=== PATIENT | female | born 1980 | race Caucasian/White ===

== ENCOUNTER 2022-01-04 02:39 | Observation (INO) | payer OTHER ==
[2022-01-04] MEDS ORDERED: ACETAMINOPHEN 1000 MG/100 ML BAG IVPB ONE (03:11)
[2022-01-04] MEDS ORDERED: SODIUM CHLORIDE 0.9% 500 ML INFUS.BAG IV ONE (03:11)
[2022-01-04] MEDS ORDERED: morphine CARPU-JECT 4 MG/1 ML DISP.SYRIN IVPUSH ONE (03:13)
[2022-01-04] MEDS ORDERED: ONDANSETRON 4 MG/2 ML VIAL IVPUSH ONE (03:13)
[2022-01-04] MEDS ORDERED: SODIUM CHLORIDE 1,000 ML IV STA (03:13)
[2022-01-04] MEDS ORDERED: morphine SULFATE 4 MG/ML VIAL ONE (03:22)
[2022-01-04] MEDS ORDERED: ACETAMINOPHEN INJECTION 100 ML IVPB ONE (03:22)
[2022-01-04] MEDS ORDERED: ONDANSETRON 4 MG/2 ML VIAL ONE ×2 (03:22→13:00)
[2022-01-04 04:19] LABS: EPI CELLS 25 /uL (0-25.1); HYALINE CASTS 1 /uL (0-3.1); URINE APPEARANCE CLEAR; URINE BACTERIA 44 /uL (0-1359); URINE BILIRUBIN NEGATIVE (NEGATIVE); URINE COLOR YELLOW; URINE GLUCOSE (UA) NEGATIVE (NEGATIVE); URINE KETONE NEGATIVE (NEGATIVE); URINE LEUK ESTERASE NEGATIVE (NEGATIVE); URINE NITRITE NEGATIVE (NEGATIVE); URINE PROTEIN TRACE (NEGATIVE); URINE RBC 1754 /uL (0-23.9); URINE UROBILINOGEN 0.2 mg/dL (0.2-1.0); URINE WBC 17 /uL (0-25.8)
[2022-01-04] MEDS ORDERED: KETOROLAC TROMETHAMINE 30 MG/1 ML VIAL IVPUSH ONE (04:26)
[2022-01-04 04:33] LABS: CALCIUM 8.9 mg/dL (8.5-10.1)
[2022-01-04 04:34] LABS: ALBUMIN 3.7 g/dl (3.4-5.0); BLOOD UREA NITROGEN 11.3 mg/dL (7-18)
[2022-01-04 04:37] LABS: CREATININE 0.8 mg/dL (0.55-1.3)
[2022-01-04 04:38] LABS: BILIRUBIN,TOTAL 0.5 mg/dL (0.2-1)
[2022-01-04 04:39] LABS: TOT PROT 7.4 g/dl (6.4-8.2)
[2022-01-04 04:52] LABS: ACTIVATED PTT 29.4 SECONDS (25.2-36.5); INR 0.98 (0.83-1.09); PROTHROMBIN TIME (PATIENT) 11.3 SEC (9.7-13.0)
[2022-01-04] MEDS ORDERED: KETOROLAC TROMETHAMINE 30 MG/1 ML VIAL ONE (05:09)
[2022-01-04 05:15] LABS: BASO % 0.5 % (0-2.0); EOS % 0.6 % (0-4.5); HEMATOCRIT 37.6 % (32.4-45.2); HEMOGLOBIN 12.5 GM/dL (10.7-15.3); LYMPH % 15.8 % (8-40); MCH 30.1 pg (25.7-33.7); MCHC 33.3 g/dl (32.0-36.0); MEAN CELL VOLUME 90.5 fl (80-96); MEAN PLT VOLUME 7.5 fl (7.5-11.1); MONO % 3.7 % (3.8-10.2); NEUT % 79.4 % (42.8-82.8); PLATELET COUNT 511 10^3/uL (134-434); RBC 4.16 M/mm3 (3.60-5.2); WHITE BLOOD COUNT 13.1 K/mm3 (4.0-10.0)
[2022-01-04] MEDS ORDERED: morphine CARPU-JECT 4 MG/1 ML DISP.SYRIN IVPUSH PRN (11:57)
[2022-01-04] MEDS ORDERED: ACETAMINOPHEN 1000 MG/100 ML BAG IVPB PRN ×2 (11:58→16:15)
[2022-01-04] MEDS ORDERED: ONDANSETRON 4 MG/2 ML VIAL IVPUSH PRN (11:59)
[2022-01-04] MEDS ORDERED: SODIUM CHLORIDE 1,000 ML IV SCH (12:15)
[2022-01-04] MEDS ORDERED: CEFTRIAXONE 1 GM/50 ML BAG ONE (13:00)
[2022-01-04] MEDS ORDERED: CEFTRIAXONE 1 GM in DEXTROSE 5%-WATER - 50 ML IVPB SCH (13:00)
[2022-01-04] MEDS ORDERED: LISINOPRIL 20 MG TABLET ONE (15:22)
[2022-01-04] MEDS: LISINOPRIL 10 MG TABLET PO SCH (15:30)
[2022-01-04] MEDS: morphine SULFATE 4 MG/ML VIAL IVPUSH PRN (22:54)
[2022-01-05 03:30] VITALS: BMI 29.5
[2022-01-05] MEDS: morphine SULFATE 4 MG/ML VIAL IVPUSH PRN (06:49)
[2022-01-05] MEDS: TAMSULOSIN HCL 0.4 MG CAP PO SCH (08:18)
[2022-01-05] MEDS ORDERED: oxyCODONE HCL 5 MG TABLET PO PRN (09:50)
[2022-01-05] MEDS: LISINOPRIL 10 MG TABLET PO SCH (10:22)
[2022-01-05 10:41] LABS: BASO % 0.4 % (0-2.0); EOS % 0.5 % (0-4.5); HEMATOCRIT 34.2 % (32.4-45.2); HEMOGLOBIN 11.8 GM/dL (10.7-15.3); LYMPH % 22.3 % (8-40); MCHC 34.5 g/dl (32.0-36.0); MEAN CELL VOLUME 89.9 fl (80-96); MEAN PLT VOLUME 7.1 fl (7.5-11.1); MONO % 4.6 % (3.8-10.2); NEUT % 72.2 % (42.8-82.8); PLATELET COUNT 451 10^3/uL (134-434); RBC 3.81 M/mm3 (3.60-5.2); RDW 12.9 % (11.6-15.6); WHITE BLOOD COUNT 10.2 K/mm3 (4.0-10.0)
[2022-01-05] MEDS ORDERED: CEFTRIAXONE 1 GM in DEXTROSE 5%-WATER - 50 ML IVPB SCH (10:45)
[2022-01-05 11:01] LABS: CALCIUM 8.6 mg/dL (8.5-10.1)
[2022-01-05 11:02] LABS: ALBUMIN 3.4 g/dl (3.4-5.0); MAGNESIUM 2.2 mg/dL (1.8-2.4)
[2022-01-05 11:05] LABS: CREATININE 0.8 mg/dL (0.55-1.3)
[2022-01-05 11:06] LABS: TOT PROT 6.8 g/dl (6.4-8.2)
[2022-01-05 11:07] LABS: BILIRUBIN,TOTAL 0.7 mg/dL (0.2-1)
[2022-01-06] MEDS: TAMSULOSIN HCL 0.4 MG CAP PO SCH (08:41)
[2022-01-06] MEDS ORDERED: ceFAZolin SODIUM 1 GM VIAL ONE (08:57)
[2022-01-06] MEDS ORDERED: GENTAMICIN SO4 80 MG/2 ML VIAL ONE (08:57)
[2022-01-06] MEDS ORDERED: GENTAMICIN SO4 80 MG/2 ML VIAL IVPB ONE (09:08)
[2022-01-06] MEDS ORDERED: ceFAZolin SODIUM 1 GM VIAL IVPB ONE (09:08)
[2022-01-06] MEDS ORDERED: PROMETHAZINE HCL 25 MG/1 ML VIAL ONE (09:49)
[2022-01-06] MEDS ORDERED: ONDANSETRON 4 MG/2 ML VIAL IVPUSH PRN ×3 (09:52→09:57)
[2022-01-06] MEDS ORDERED: PROMETHAZINE HCL 25 MG/1 ML VIAL IVPUSH PRN ×2 (09:52→09:57)
[2022-01-06] MEDS ORDERED: oxyCODONE HCL 5 MG TABLET PO PRN (09:57)
[2022-01-06] MEDS ORDERED: ACETAMINOPHEN 1000 MG/100 ML BAG IVPB PRN (09:57)
[2022-01-06] MEDS ORDERED: SODIUM CHLORIDE 1,000 ML IV SCH (09:57)
[2022-01-06] MEDS ORDERED: LACTATED RINGERS SOLUTION 1,000 ML IV SCH (10:00)
[2022-01-06] MEDS ORDERED: LISINOPRIL 10 MG TABLET PO SCH (10:00)
[2022-01-06] MEDS ORDERED: FENTANYL CITRATE/PF 50 MCG/ML VIAL ONE (10:00)
[2022-01-06 11:09] VITALS: RESP 18
[2022-01-06] MEDS ORDERED: ACETAMINOPHEN 1000 MG/100 ML BAG IVPB ONE (13:20)
[2022-01-06 13:50] VITALS: BP 135/84; PULSE 59; TEMP 98.6
[2022-01-06 18:10] LABS: HEMATOCRIT 39.5 % (32.4-45.2); HEMOGLOBIN 13.1 GM/dL (10.7-15.3); MCH 29.9 pg (25.7-33.7); MCHC 33.1 g/dl (32.0-36.0); MEAN CELL VOLUME 90.1 fl (80-96); MEAN PLT VOLUME 7.5 fl (7.5-11.1); PLATELET COUNT 564 10^3/uL (134-434); RBC 4.38 M/mm3 (3.60-5.2); RDW 12.7 % (11.6-15.6); WHITE BLOOD COUNT 12.5 K/mm3 (4.0-10.0)
[2022-01-06 18:35] LABS: CALCIUM 9.6 mg/dL (8.5-10.1)
[2022-01-06 18:39] LABS: CREATININE 0.9 mg/dL (0.55-1.3)
[2022-01-06 21:30] LABS: MACROCYTOSIS 0; PLATELET ESTIMATE INCREASED
[2022-01-11 10:07] LABS: CA OXALATE MONOHYDR. 100 % (.); SIZE 3x2 mm (.); WEIGHT 15 mg (.)
== END 2022-01-06 17:46 | disposition home or self-care (01) ==
LOC: JER 02:39 → JERBED 06:24 → J6S 19:47
PROVIDERS: ADMIT Internal Medicine; ATTEND Internal Medicine
PROC: 3E0337Z Introduction of Electrolytic and Water Balance Substance into Peripheral Vein, Percutaneous Approach (ICD-10-PCS; principal; 2022-01-04)
PROC: 3E033NZ Introduction of Analgesics, Hypnotics, Sedatives into Peripheral Vein, Percutaneous Approach (ICD-10-PCS; 2022-01-04)
PROC: 3E03329 Introduction of Other Anti-infective into Peripheral Vein, Percutaneous Approach (ICD-10-PCS; 2022-01-04)
PROC: 3E0333Z Introduction of Anti-inflammatory into Peripheral Vein, Percutaneous Approach (ICD-10-PCS; 2022-01-04)
PROC: 3E0337Z Introduction of Electrolytic and Water Balance Substance into Peripheral Vein, Percutaneous Approach (ICD-10-PCS; 2022-01-04)
PROC: 0T9780Z Drainage of Left Ureter with Drainage Device, Via Natural or Artificial Opening Endoscopic (ICD-10-PCS; 2022-01-04)
PROC: 0TC78ZZ Extirpation of Matter from Left Ureter, Via Natural or Artificial Opening Endoscopic (ICD-10-PCS; 2022-01-04)
PROC: 0T778DZ Dilation of Left Ureter with Intraluminal Device, Via Natural or Artificial Opening Endoscopic (ICD-10-PCS; 2022-01-04)
DX: N20.0 Calculus of kidney (principal); N13.30 Unspecified hydronephrosis; I10 Essential (primary) hypertension; K29.70 Gastritis, unspecified, without bleeding
CPT/HCPCS: 52332; 96361; 96365; 96366; 96375; 96376; C9761; 0241U-QW; 36415; 74177-TC; 76000-TC-FY; 80048; 80053; 81003; 82360; 83690; 83735; 84100; 84703; 85025; 85610; 85730; 86850; 86900; 86901; 87086; 88300-TC; 94760; 99285-25; C1769; C2617; G0378; Q9967